=== PATIENT | female | born 1990 | race Caucasian/White ===

== ENCOUNTER 2017-12-02 15:47 | Inpatient (IN) ==
[2017-12-02 16:43] LABS: Baso % (Auto) 0.4 % (0.0-2.0); Eos % (Auto) 0.1 % (0.0-4.0); Hematocrit 31.8 % (35.0-46.0); Lymph # (Auto) 1.3 th/mm3 (1.0-4.8); Lymph % (Auto) 14.1 % (9.0-44.0); Mean Corpuscular HGB Conc 31.6 % (32.0-36.0); Mean Corpuscular Hemoglobin 23.8 pg (27.0-34.0); Mean Corpuscular Volume 75.3 fL (80.0-100.0); Mean Platelet Volume 8.7 fL (7.0-11.0); Mono # (Auto) 0.5 th/mm3 (0.0-0.9); Mono % (Auto) 4.8 % (0.0-8.0); Neut # (Auto) 7.7 th/mm3 (1.8-7.7); Neut % (Auto) 80.6 % (16.0-70.0); Platelet Count 288 th/mm3 (150-450); Red Blood Count 4.22 mil/mm3 (4.00-5.30); White Blood Count 9.6 th/mm3 (4.0-11.0)
[2017-12-02] MEDS ORDERED: Citric Acid/Sodium Citrate Liq 30 ML UDC PO SCH (16:45)
[2017-12-02 16:54] LABS: Amphetamine Screen,Urine Neg (Neg); Barbiturate Screen,Urine Neg (Neg); Cannabinoid Screen,Urine Neg (Neg); Cocaine Screen,Urine Neg (Neg)
[2017-12-02 16:55] LABS: Opiate Screen,Urine Neg (Neg)
[2017-12-02] MEDS ORDERED: ceFAZolin Inj 2,000 MG in Sodium Chlor 0.9% Inj 80 ML IV.SIG SCH (17:00)
[2017-12-02] MEDS ORDERED: Morphine Sulfate PF Inj 5 MG/10 ML Ampul ONE (17:03)
[2017-12-02 17:06] LABS: Bilirubin,Urine Negative (Negative); Clarity,Urine Cloudy (Clear); Color,Urine Amber (Yellw/Straw); Glucose,Urine (UA) Negative (Negative); Leukocyte Esterase,Urine Negative (Negative); Mucus,Urine Many /lpf (Occasional); Nitrite,Urine Negative (Negative); Specific Gravity,Urine 1.025 (1.002-1.035); Squamous Epithelial Cell,Urine 45 /hpf (0-5)
[2017-12-02] MEDS ORDERED: Oxytocin 30 Units/500ml Premix 30 UNITS/500 ML BAG IV.SIG ONE (17:13)
--- NOTE | 2017-12-02 17:13 | P.HPOB ---
History of Present Illness Service: labor and delivery Primary Care Physician: NOT REQUIRED Chief Complaint: pre eclampsia with severe features (JOSÉ) at 36 5/7 week Prior section x 2 History of Present Illness: 26 yo wf at 36 and 5/7 weeks EGA seen twice weekly with gradually increasing BPs. Today was 140/90 and 150/88. Complaining of severe JOSÉ (11/09) , visual scotoma, persistent nausea and some emesis. No RUQT, minimal swelling. 1=-2+ protein on dip. Serial labs have been reassuring--last checked 11/25. Has had prior section at 37 weeks for pre eclampsia and original section at term for the same. Notes GFM, no leaking or bleeding. BPP today 11/16. Cervix closed. Had severe anemia in third trimester and received IV iron. Abnormal glucola but normal 3 hour GTT. Elevated BMI with total weight gain 20 pounds. Desires BTL. - Inpatient Certification I certify that the inpatient services were ordered in accordance with Medicare regulations governing the order. This includes certification that hospital inpatient services are reasonable and necessary and in the case of services not specified as inpatient-only under 42 CFR 419.22(n), that they are appropriately provided as inpatient services in accordance to with the 2-midnight benchmark under 43 CFR 412.3(e) Estimated Total Length of Stay (Days): 3 Plans for Post Hospital Care: Home Review of Systems All other systems reviewed negative except as stated in HPI [facility] - History History Provided By: Patient - Medical History Medical History: Medical History (Last Updated 10/31/17 @ 11:18 by Drea Alaniz) Anemia affecting History of chicken pox Hypertension - Surgical History Surgical History: Surgical History (Last Updated 10/31/17 @ 09:54 by Drea Alaniz) History of Medications and Allergies Active Medications: Active Medications Citric Acid/Sodium Citrate (Sodium Citrate/Citric Acid Liq) 30 ml PO TECHNICIAN [facility] Stop: 12/06/17 16:44 Lactated Ringer's (Lr 1000 Ml Inj) 1,000 mls @ 2,000 mls/hr IV.SIG .Q30M ONE Stop: 12/02/17 17:14 Lactated Ringer's (Lr 1000 Ml Inj) 1,000 mls @ 150 mls/hr IV.CONT .Q6H40M [facility] Cefazolin Sodium 2,000 mg/ (Sodium Chloride) 100 mls @ 200 mls/hr IV.SIG TECHNICIAN [facility] Stop: 12/06/17 16:59 Allergies Allergy/AdvReac Type Severity Reaction Status Date / Time Sulfa (Sulfonamide AdvReac Mild Gastrointestinal Verified 12/02/17 16:52 Antibiotics) Upset Exam Vital signs: Vital Signs 12/02/17 16:01 Temperature 98.0 F Pulse Rate 129 H Respiratory Rate 20 Blood Pressure 140/93 H Intake & Output 12/01/17 12/02/17 12/02/17 18:59 06:59 18:59 Weight 92.986 kg - Constitutional mild distress, obese - Routine Extremities Exam Present: edema - Routine Skin Exam Present: intact - Routine Neurological Exam Present: oriented X3, normal reflexes Results - Labs CBC & Chem 7: 12/02/17 16:30 Labs: Laboratory Results - last 24 hr 12/02/17 12/02/17 12/02/17 16:30 16:30 16:30 WBC 9.6 RBC 4.22 Hgb 10.0 L Hct 31.8 L MCV 75.3 L MCH 23.8 L MCHC 31.6 L RDW 19.0 H Plt Count 288 MPV 8.7 Neut % (Auto) 80.6 H Lymph % (Auto) 14.1 Dade % (Auto) 4.8 Eos % (Auto) 0.1 Baso % (Auto) 0.4 Neut # (Auto) 7.7 Lymph # (Auto) 1.3 Dade # (Auto) 0.5 Eos # (Auto) 0.0 Baso # (Auto) 0.0 WBC Differential . Differential Comment Auto diff final Urine Opiates Screen Neg Ur Barbiturates Screen Neg Ur Amphetamines Screen Neg U Benzodiazepines Scrn Neg Urine Cocaine Screen Neg U Cannabinoids Screen Neg Blood Type A Negative Blood Type Recheck Required Antibody Screen ND Caprini VTE Risk Assessment Caprini VTE Risk Assessment: No/Low Risk (score <= 1) Caprini Risk Assessment Model: Point Value = 1 Point Value = 2 Point Value = 3 Point Value = 5 Age 41-60 Minor surgery BMI > 25 kg/m2 Swollen legs Varicose veins or History of unexplained or recurrent spontaneous Oral contraceptives or hormone replacement Sepsis (< 1 month) Serious lung disease, including pneumonia (< 1 month) Abnormal pulmonary function Acute myocardial infarction Congestive heart failure (< 1 month) History of inflammatory bowel disease Medical patient at bed rest Age 61-74 Arthroscopic surgery Major open surgery (> 45 min) Laparoscopic surgery (> 45 min) Malignancy Confined to bed (> 72 hours) Immobilizing plaster cast Central venous access Age >= 75 History of VTE Family history of VTE Factor V Leiden Prothrombin [id number] Lupus anticoagulant Anticardiolipin antibodies Elevated serum homocysteine Heparin-induced thrombocytopenia Other congenital or acquired thrombophilia Stroke (< 1 month) Elective arthroplasty Hip, pelvis, or leg fracture Acute spinal cord injury (< 1 month) Prophylaxis Regimen: Total Risk Factor Score Risk Level Prophylaxis Regimen 0-1 Low Early ambulation 2 Moderate Order ONE of the following: *Sequential Compression Device (SCD) *Heparin 5000 units SQ BID 3-4 Higher Order ONE of the following medications: *Heparin 5000 units SQ TID *Enoxaparin/Lovenox 40 mg SQ daily (WT < 150 kg, CrCl > 30 mL/min) *Enoxaparin/Lovenox 30 mg SQ daily (WT < 150 kg, CrCl > 10-29 mL/min) *Enoxaparin/Lovenox 30 mg SQ BID (WT < 150 kg, CrCl > 30 mL/min) AND/OR *Sequential Compression Device (SCD) 5 or more Highest Order ONE of the following medications: *Heparin 5000 units SQ TID (Preferred with Epidurals) *Enoxaparin/Lovenox 40 mg SQ daily (WT < 150 kg, CrCl > 30 mL/min) *Enoxaparin/Lovenox 30 mg SQ daily (WT < 150 kg, CrCl > 10-29 mL/min) *Enoxaparin/Lovenox 30 mg SQ BID (WT < 150 kg, CrCl > 30 mL/min) AND *Sequential Compression Device (SCD) Assessment and Plan - Diagnosis (1) 36 weeks gestation of Code(s): Z3A.36 - 36 weeks gestation of Status: Acute (2) Previous delivery affecting Code(s): O34.219 - Maternal care for unspecified type scar from previous delivery Status: Acute (3) Pre-eclampsia Code(s): O14.90 - Unspecified pre-eclampsia, unspecified trimester Status: Acute Plan: for section with BTL risks, benefits, expectation of repeat section with BTL discussed (4) Obese abdomen Code(s): E65 - Localized adiposity Status: Acute
--- NOTE | 2017-12-02 17:27 | P.OBDELI ---
Procedure Note Performed by: Martita Segura MD Procedure: Repeat Low Transverse Section, Other (BTL) Indication for Delivery: Maternal medical problems, Other (pre eclmapsia with severe feature of JOSÉ, N, V and blurred vision) Informed Consent Obtained: For anesthesia, For procedure Confirmed Correct: Patient, Procedure, Site, Time-out taken Anesthesia: Spinal Medication Prior to Procedure: As documented in eMAR Monitoring During Procedure: Blood pressure monitoring, doppler, Pulse oximetry Urinary Catheter: Inserted using sterile technique, To dependent drainage Sterile Preparation: Duraprep, In usual fashion Position: Supine with wedge to right side - Operative Features Skin Incision: Pfannenstiel Uterine Incision: Low transverse w/knife / scissors Membranes Ruptured: Artificially Presentation: Occiput anterior Status of Infant: Viable, Cord blood, Nursery present Placenta Delivered: Intact, Other (Mimedex donation) Medications: Antibiotics, Oxytocin Estimated blood loss (mL): 500 Procedure Tolerated: Well Maternal Condition: Stable Baby Condition: Stable - Infant: Female (female with apgars 8 and 9 weight pending from [facility]. Placenta intact with 3 VC BPs stable and no magnesium during procedure. will watch for BP increase in post op and treate accordingly)
[2017-12-02] MEDS ORDERED: Zolpidem Tartrate 5 MG Tablet PO PRN (21:00)
[2017-12-02] MEDS ORDERED: Oxytocin 30 Units/500ml Premix 30 UNITS/500 ML BAG IV.SIG PRN (22:13)
[2017-12-02] MEDS ORDERED: Naloxone Inj 0.4 MG/ML Vial IV.PUSH PRN (23:56)
--- NOTE | 2017-12-03 05:39 | P.OBGPN ---
look pt up in PDMP and reviewed report
[2017-12-03 06:32] LABS: Baso % (Auto) 0.3 % (0.0-2.0); Eos % (Auto) 0.1 % (0.0-4.0); Hematocrit 26.6 % (35.0-46.0); Hemoglobin 8.5 gm/dL (11.6-15.3); Lymph # (Auto) 1.4 th/mm3 (1.0-4.8); Lymph % (Auto) 16.4 % (9.0-44.0); Mean Corpuscular HGB Conc 31.9 % (32.0-36.0); Mean Corpuscular Hemoglobin 24.2 pg (27.0-34.0); Mean Corpuscular Volume 75.9 fL (80.0-100.0); Mean Platelet Volume 9.1 fL (7.0-11.0); Mono # (Auto) 0.5 th/mm3 (0.0-0.9); Mono % (Auto) 5.3 % (0.0-8.0); Neut # (Auto) 6.9 th/mm3 (1.8-7.7); Neut % (Auto) 77.9 % (16.0-70.0); Platelet Count 246 th/mm3 (150-450); Red Blood Count 3.51 mil/mm3 (4.00-5.30); Red Cell Distribution Width 19.2 % (11.6-17.2); White Blood Count 8.8 th/mm3 (4.0-11.0)
[2017-12-03 06:57] LABS: Anion Gap 10 meq/L (5-15); Aspartate Aminotransferase 13 U/L (15-37); Blood Urea Nitrogen 4 mg/dL (7-18); Calcium 8.3 mg/dL (8.5-10.1); Carbon Dioxide 23.9 meq/L (21.0-32.0); Chloride 105 meq/L (98-107); Glomerular Filtration Rate Greater Than 89 mL/min (>89); Glucose,Random 73 mg/dL (74-106); Sodium 139 meq/L (136-145)
[2017-12-03 06:59] LABS: Alanine Aminotransferase 9 U/L (10-53)
[2017-12-03 07:01] LABS: Alkaline Phosphatase 84 U/L (45-117); Total Protein 5.6 g/dL (6.4-8.2)
--- NOTE | 2017-12-03 07:39 | P.PNOB ---
Subjective Post op day: 1 Interval history: Doing well, ambulating without difficulty, voiding spontaneously, vaginal bleeding less than menses, pain controlled, no nausea or vomiting. Denies headache, epigastric pain right upper quadrant pain. Objective Vital Signs/I&O: Vital Signs 12/02/17 16:01 12/02/17 18:14 12/02/17 18:32 Temperature 98.0 F 97.6 F Pulse Rate 129 H 92 H 78 Respiratory Rate 20 20 18 Blood Pressure 140/93 H 134/73 113/68 12/02/17 18:46 12/02/17 19:10 12/02/17 20:00 Temperature 97.7 F 98.1 F Pulse Rate 79 80 87 Respiratory Rate 18 18 17 Blood Pressure 126/60 112/81 142/95 H 12/03/17 00:00 12/03/17 04:00 Temperature 97.8 F 98.2 F Pulse Rate 68 74 Respiratory Rate 18 21 Blood Pressure 111/77 128/77 Intake & Output 12/02/17 12/03/17 12/03/17 18:59 06:59 18:59 Weight 92.986 kg Result Diagrams: 12/03/17 06:04 12/03/17 06:04 Objective Remarks: GENERAL: Well-nourished, well-developed patient. CARDIOVASCULAR: Regular rate and rhythm without murmurs, gallops, or rubs. RESPIRATORY: Breath sounds equal bilaterally. No accessory muscle use. ABDOMEN/GI: Abdomen soft, non-tender, bowel sounds present. Dressing clean, dry and intact. Fundus: Firm, non-tender at umbilicus. GENITOURINARY: Light to moderate bleeding. EXTREMITIES: No cyanosis or edema, non-tender, without signs of DVT. Medications and IVs: Active Medications Citric Acid/Sodium Citrate (Sodium Citrate/Citric Acid Liq) 30 ml PO ABSTRACT MANAGER [facility] Stop: 12/06/17 16:44 Diphenhydramine HCl (Benadryl) 50 mg PO Q6H PRN PRN Reason: MILD TO MODERATE ITCHING Stop: 12/03/17 23:55 Last Admin: 12/03/17 05:48 Dose: 50 mg Diphenhydramine HCl (Benadryl Inj) 25 mg IV.PUSH Q6H PRN PRN Reason: MILD TO MODERATE ITCHING Stop: 12/03/17 23:55 Diphtheria/Pertussis/Tetanus Vacc (Boostrix Vaccine Inj) 0.5 ml IM .ONCE ONE Stop: 12/03/17 16:01 Lactated Ringer's (Lr 1000 Ml Inj) 1,000 mls @ 150 mls/hr IV.CONT .Q6H40M [facility] Last Admin: 12/03/17 01:29 Dose: Not Given Cefazolin Sodium 2,000 mg/ (Sodium Chloride) 100 mls @ 200 mls/hr IV.SIG ABSTRACT MANAGER [facility] Stop: 12/06/17 16:59 Oxytocin (Pitocin 30 Units/Ns 500 Ml Premix) 30 units in 500 mls @ 100 mls/hr IV.SIG UNSCH PRN PRN Reason: Heavy bleeding Lactated Ringer's (Lr 1000 Ml Inj) 1,000 mls @ 100 mls/hr IV.CONT .Q10H [facility] Stop: 12/03/17 18:12 Last Admin: 12/03/17 00:28 Dose: Not Given Ibuprofen (Motrin) 800 mg PO Q8H PRN PRN Reason: cramping Last Admin: 12/03/17 05:48 Dose: 800 mg Measles/Mumps/Rubella Vaccine Live (M-M-R Ii Vaccine Inj) 0.5 ml SQ .ONCE ONE Stop: 12/03/17 16:01 Miscellaneous Information ([facility]) 1 each OTHER UNSCH PRN PRN Reason: SEE LABEL COMMENTS Stop: 12/03/17 23:55 Miscellaneous Information ([facility] Information) 1 each OTHER UNSCH PRN PRN Reason: SEE LABEL COMMENTS Stop: 12/03/17 23:55 Naloxone HCl (Narcan Inj) 0.4 mg IV.PUSH UNSCH PRN PRN Reason: SEE LABEL COMMENTS Stop: 12/03/17 23:55 Ondansetron HCl (Zofran Inj) 4 mg IV.PUSH Q6H PRN PRN Reason: NAUSEA OR VOMITING Oxycodone/Acetaminophen (Percocet 5/325 Mg) 1 tab PO Q4H PRN PRN Reason: PAIN SCALE 3 TO 5 Oxycodone/Acetaminophen (Percocet 5/325 Mg) 2 tab PO Q4H PRN PRN Reason: PAIN SCALE 6 TO 10 Senna/Docusate Sodium (Jenni-Colace) 2 tab PO Q12H PRN PRN Reason: CONSTIPATION Simethicone (Mylicon Chew) 80 mg PO QID PRN PRN Reason: FLATULENCE Sodium Chloride (Ns Flush) 2 ml IV.FLUSH PRN PRN PRN Reason: FLUSH AFTER USING IV ACCESS Sodium Chloride (Ns Flush) 2 ml IV.FLUSH BID [facility] Last Admin: 12/02/17 22:44 Dose: Not Given Zolpidem Tartrate (Ambien) 5 mg PO HS PRN PRN Reason: INSOMNIA Assessment and Plan - Diagnosis (1) 36 weeks gestation of Code(s): Z3A.36 - 36 weeks gestation of Status: Acute (2) Previous delivery affecting Code(s): O34.219 - Maternal care for unspecified type scar from previous delivery Status: Acute (3) Pre-eclampsia Code(s): O14.90 - Unspecified pre-eclampsia, unspecified trimester Status: Acute Plan: for section with BTL risks, benefits, expectation of repeat section with BTL discussed (4) Obese abdomen Code(s): E65 - Localized adiposity Status: Acute - Plan 26-year-old 89 status post repeat low transverse and bilateral tubal ligation at 36 weeks and 5 days secondary to preeclampsia with severe features. 1. Postoperative day #1: Afebrile, vital signs stable, AM labs noted and appropriate, continue routine post care, anticipate discharge home in the next 48 hours. -Female 2. Preeclampsia with severe features: Did not receive magnesium, blood pressures mild range normotensive, denies any symptoms of severe features. Continue to trend, discussed preeclampsia precautions after discharge. Will need 1 week follow-up in the office for blood pressure check.
[2017-12-03] MEDS: Simethicone 80 MG Chew Tablet PO PRN ×3 (09:18→22:27)
[2017-12-03] MEDS: Senna/Docusate Sodium 8.6/50 MG Tablet PO PRN ×2 (09:18→22:27)
[2017-12-03 11:52] VITALS: RESP 20
[2017-12-03] MEDS ORDERED: Diphtheria/Tetanus/Pertussis Vaccine Inj 0.5 ML Syringe IM ONE (16:00)
[2017-12-03] MEDS ORDERED: Measles/Mumps/Rubella Vaccine Inj 0.5 ML Vial SQ ONE (16:00)
[2017-12-03 20:05] VITALS: BP 120/65; PULSE 87; TEMP 97.9
--- NOTE | 2017-12-04 09:20 | P.PNOB ---
Subjective Post op day: 2 Interval history: Doing well, pain controlled, ambulating without difficulty, voiding spontaneously, vaginal bleeding less than menses. Denies headache, blurred vision or epigastric pain Objective Vital Signs/I&O: Vital Signs 12/03/17 11:51 12/03/17 20:00 Temperature 97.7 F 97.9 F Pulse Rate 93 H 87 Respiratory Rate 20 20 Blood Pressure 117/71 120/65 Result Diagrams: 12/03/17 06:04 12/03/17 06:04 Objective Remarks: GENERAL: Well-nourished, well-developed patient. CARDIOVASCULAR: Regular rate and rhythm without murmurs, gallops, or rubs. RESPIRATORY: Breath sounds equal bilaterally. No accessory muscle use. ABDOMEN/GI: Abdomen soft, non-tender, bowel sounds present. Incision: Clean, dry and intact. Fundus: Firm, non-tender at umbilicus. GENITOURINARY: Light to moderate bleeding. EXTREMITIES: No cyanosis or edema, non-tender, without signs of DVT. Medications and IVs: Active Medications Citric Acid/Sodium Citrate (Sodium Citrate/Citric Acid Liq) 30 ml PO [facility] Stop: 12/06/17 16:44 Lactated Ringer's (Lr 1000 Ml Inj) 1,000 mls @ 150 mls/hr IV.CONT .Q6H40M [facility] Last Admin: 12/03/17 19:27 Dose: Not Given Cefazolin Sodium 2,000 mg/ (Sodium Chloride) 100 mls @ 200 mls/hr IV.SIG [facility] Stop: 12/06/17 16:59 Oxytocin (Pitocin 30 Units/Ns 500 Ml Premix) 30 units in 500 mls @ 100 mls/hr IV.SIG UNSCH PRN PRN Reason: Heavy bleeding Ibuprofen (Motrin) 800 mg PO Q8H PRN PRN Reason: cramping Last Admin: 12/03/17 22:26 Dose: 800 mg Ondansetron HCl (Zofran Inj) 4 mg IV.PUSH Q6H PRN PRN Reason: NAUSEA OR VOMITING Oxycodone/Acetaminophen (Percocet 5/325 Mg) 1 tab PO Q4H PRN PRN Reason: PAIN SCALE 3 TO 5 Last Admin: 12/03/17 14:27 Dose: 1 tab Oxycodone/Acetaminophen (Percocet 5/325 Mg) 2 tab PO Q4H PRN PRN Reason: PAIN SCALE 6 TO 10 Last Admin: 12/04/17 05:06 Dose: 2 tab Senna/Docusate Sodium (Jenni-Colace) 2 tab PO Q12H PRN PRN Reason: CONSTIPATION Last Admin: 12/03/17 22:27 Dose: 2 tab Simethicone (Mylicon Chew) 80 mg PO QID PRN PRN Reason: FLATULENCE Last Admin: 12/03/17 22:27 Dose: 80 mg Sodium Chloride (Ns Flush) 2 ml IV.FLUSH PRN PRN PRN Reason: FLUSH AFTER USING IV ACCESS Sodium Chloride (Ns Flush) 2 ml IV.FLUSH BID [facility] Last Admin: 12/03/17 23:49 Dose: Not Given Zolpidem Tartrate (Ambien) 5 mg PO HS PRN PRN Reason: INSOMNIA Assessment and Plan - Diagnosis (1) 36 weeks gestation of Code(s): Z3A.36 - 36 weeks gestation of Status: Acute (2) Previous delivery affecting Code(s): O34.219 - Maternal care for unspecified type scar from previous delivery Status: Acute (3) Pre-eclampsia Code(s): O14.90 - Unspecified pre-eclampsia, unspecified trimester Status: Acute (4) Obese abdomen Code(s): E65 - Localized adiposity Status: Acute - Plan 26-year-old 89 status post repeat low transverse and bilateral tubal ligation at 36 weeks and 5 days secondary to preeclampsia with severe features. 1. Postoperative day #2: Afebrile, vital signs stable, desires d/c home today, Fu 1 week in office. -Female 2. Preeclampsia with severe features: Did not receive magnesium, blood pressures mild range normotensive, denies any symptoms of severe features. Continue to trend, discussed preeclampsia precautions after discharge. Will need 1 week follow-up in the office for blood pressure check.
--- NOTE | 2017-12-04 09:21 | P.DS ---
Date of admission: 12/02/17 15:47 Primary care physician: NOT REQUIRED Brief History from admission: 26-year-old 89 who presented at 36 weeks and 5 days with some preeclampsia with severe features, she underwent a repeat and bilateral tubal ligation. She was meeting all of her milestones and was discharged home on postoperative day #2. DS: Diagnosis - Discharge Diagnosis (1) 36 weeks gestation of Status: Acute (2) Previous delivery affecting Status: Acute (3) Pre-eclampsia Status: Acute (4) Obese abdomen Status: Acute DS: Medications - Discharge Medications Prescriptions: ibuprofen [Motrin IB] 600 mg PO TID #30 tab oxycodone-acetaminophen [Percocet] 1 tab PO Q4-6H PRN #15 tab PRN Reason: Pain DS: Summary Hospital Course: See brief history - Time Spent with Patient Total time spent providing and/or coordinating discharge services: Less than 30 minutes Exam Vital signs: Vital Signs 12/03/17 11:51 12/03/17 20:00 Temperature 97.7 F 97.9 F Pulse Rate 93 H 87 Respiratory Rate 20 20 Blood Pressure 117/71 120/65 Results Procedures completed during hospitalization: Repeat low transverse and bilateral tubal ligation Discharge Plan - Discharge Disposition Patient Disposition: 01 Discharge Home - Discharge Condition Condition: Good - Discharge Order Discharge Orders: Discharge Order (Routine); Ordered 12/04/17 Ordered By: Sukhdev Velasco - Discharge Details Anticipated Discharge Date: 12/04/17 - Physicians Team Primary Care Provider: NOT REQUIRED, Attending Provider: Martita Segura - Rxs /Orders / Referrals /Forms Prescriptions: New ibuprofen [Motrin IB] 200 mg Tablet 600 mg PO TID Qty: 30 RF: 1 oxycodone-acetaminophen [Percocet] 5-325 mg Tablet 1 tab PO Q4-6H PRN (Reason: Pain) Qty: 15 RF: 0 Referrals: NOT REQUIRED, [Primary Care Provider] - See Instructions - Post Discharge Care Plan Care Plan Goals: Congratulations on your new baby! We want your recovery to be barnett and trouble free. Please Report the Following Symptoms to Your Doctor: -Temperature above 100.5 degrees -Redness of incision or excessive or foul smelling drainage -Unusual pain or calf pain -Increased vaginal bleeding -Painful or difficulty urinating -Feelings of extreme sadness or anxiety Goals to Promote Your Health * To prevent worsening of your condition and complications * To maintain your health at the optimal level Directions to Meet Your Goals Take your medications as prescribed Follow your dietary instruction Follow activity as directed Ensure plenty of rest for recovery Drink fluids for hydration Keep your appointments as scheduled Take your immunizations and boosters as scheduled If your symptoms worsen call your OB Physician, or go to an Urgent Care Center or Emergency Room Smoking is Dangerous to your health. Avoid second hand smoke Call the 24-hour crisis hotline for domestic abuse at
[2017-12-04] MEDS: Simethicone 80 MG Chew Tablet PO PRN (11:22)
--- NOTE | 2017-12-20 19:46 | MP ---
cc: Martita Segura MD DATE OF OPERATION: 12/02/2017 PREOPERATIVE DIAGNOSIS: Scheduled section and tubal ligation, moved up because of preeclampsia with severe features. POSTOPERATIVE DIAGNOSES: Scheduled section and tubal ligation, moved up because of preeclampsia with severe features, delivered. PROCEDURE: Repeat low transverse segment section with tubal ligation. ANESTHESIA: Spinal. SURGEON Martita Segura MD FINDINGS: A living female with Apgars of 8 at one, 9 at five was delivered from [facility] position. The placenta was posterior and removed intact and sent him and [employer] for donation. Apgars were 9 at one and 9 at five and weight I believe was 7-1/2 pounds. ESTIMATED BLOOD LOSS: 500 mL Sponge, instrument, and needle counts correct and mom and baby were stable. PROCEDURE IN DETAIL: The patient was seen in the office and it was documented that her pressures were elevated. She was having nausea, vomiting, headache, blurred vision, hyperreflexia, edema and proteinuria. The decision was made to schedule her section for that day as opposed to the scheduled 39-week one. She was taken to the operating room at [place], administered spinal analgesia, placed in dorsal supine position with weight off the vena cava. A Rey catheter had been placed. She had sequentials on. A timeout was performed. She had received 2 grams of Ancef IV. After assuring adequate analgesia, a Pfannenstiel incision was made where her previous Pfannenstiel incision was and it was taken down to the fascia with a knife and then the fascia was incised with the Bovie on cutting and off the rectus muscle. The rectus muscles were in the midline and the parietal peritoneum was then entered sharply with care to avoid underlying structures. A bladder flap was created off the lower uterine segment and then an incision was made into the intrauterine cavity and spread bluntly and then the baby was delivered with the findings as noted above. The cord was clamped x2, cut, and she was handed off to the neonatology team in attendance. The placenta was removed intact with a 3-vessel cord. The uterus was exteriorized, cleaned with a lap sponge and closed with chromic in a running interlocking fashion with the second horizontal imbricating layer. Then, the right tube was grasped and the distal half of the tube was excised and sent to pathology. The area was noted to be hemostatic. The left tube was then grasped, clamped off with hemostats and excised and sent to pathology and again that area was hemostatic. The uterus was carefully replaced into the abdominal cavity. Irrigation was then performed and then the muscle was closed with 1 Vicryl in a running, non-interlocking fashion. The fascia was closed with 1 Vicryl in a non-interlocking fashion and then subcutaneous layer was closed with 3-0 plain and the skin was closed with 4-0 Vicryl on a Karel needle. Estimated blood loss was 500 mL. Sponge, instrument, and needle counts were correct. Mom and baby tolerated the procedure well. No magnesium was used during the procedure, and it was determined that she would be watched for blood pressure increase postop and treated accordingly. Martita Segura MD PPC/ct , 07:08 PM , 07:15 PM
== END 2017-12-04 14:35 | disposition home or self-care (01) ==
LOC: H2E 15:47 → H1EA 19:32
PROVIDERS: ADMIT Obstetrics & Gynecology; ATTEND Obstetrics & Gynecology